=== PATIENT | female | born 1975 | race Caucasian/White ===

== ENCOUNTER → 2016-06-13 | Day surgery (SDC) | payer OTHER ==
[~2016-06-13] MED LIST: THROMBIN (RECOMBINANT) 5,000 UNIT VIAL TP ONE
--- NOTE | 2016-06-13 13:50 | MA ---
Diagnostic Digital Mammogram Left Breast Reason for examination: Follow up stereotactic left breast biopsy. Technique: Craniocaudal and true lateral views were obtained. Findings: The Suros marker is deployed at the biopsy site in the outer mid left breast. Impression: The Suros marker is deployed at the biopsy site. We will await pathologic results.
--- NOTE | 2016-06-13 16:04 | MA ---
Stereotactic Core Biopsy Left Breast History: Suspicious microcalcifications left breast. Technique: Following informed consent (which included infection, bleeding and failure to obtain suffi cient specimens for diagnosis), the patient was placed prone on the stereotactic biopsy table and the breast was suspended through the open space in the table. A approach was employed. The skin was then prepped in sterile fashion. Local anesthesia was achieved with 1% lidocaine, lidoca ine mixed with epinephrine and Marcaine. A small skin enrike was placed on the skin surface through which the 9 gauge Suros vacuum-assisted core biopsy needle was advanced. Following confirmation of correct placement, core biopsy samples were ob tained. Specimen radiograph demonstrates calcifications. A Suros sterile clip was then placed in the biopsy bed. A single mammographic image is obtained confi rming the clip deployment. The needle was removed and hemostasis was achieved with manual compression . The specimen was sent to the Laboratory. The patient was sent for post procedural mammogram to docu ment clip placement and to look for postprocedural hematoma. She was then discharged without complica tion, with follow up instructions. Impression: Successful stereotactic core biopsy of left breast microcalcifications. We will await pathologic results.
== END | disposition home or self-care (01) ==
LOC: FIMAGING 12:17
PROVIDERS: ATTEND Physician Assistant
PROC: 0HBU3ZX Excision of Left Breast, Percutaneous Approach, Diagnostic (ICD-10-PCS; principal; 2016-06-13)
DX: N60.12 Diffuse cystic mastopathy of left breast (principal)
CPT/HCPCS: G0206

== ENCOUNTER → 2017-01-11 | Outpatient (CLI) | payer OTHER | LOC: BMCIMAGING 10:06 | PROVIDERS: ATTEND Physician Assistant | DX: R92.8 Other abnormal and inconclusive findings on diagnostic imaging of breast (principal) | CPT/HCPCS: G0206 ==

== ENCOUNTER → 2017-05-23 | Outpatient (CLI) | payer OTHER | LOC: BMCIMAGING 09:08 | PROVIDERS: ATTEND Physician Assistant | DX: Z12.31 Encounter for screening mammogram for malignant neoplasm of breast (principal) ==

== ENCOUNTER → 2018-07-03 | Outpatient (CLI) | payer OTHER | LOC: FIMAGING 14:51 | PROVIDERS: ATTEND Physician Assistant | DX: Z12.31 Encounter for screening mammogram for malignant neoplasm of breast (principal) ==